=== PATIENT | female | born 1985 | race Caucasian/White ===

== ENCOUNTER 2018-11-06 17:44 | Emergency (ER) | payer OTHER ==
[~2018-11-06] VITALS: Ht 157.5 cm; Wt 58.1 kg
[2018-11-06] MEDS ORDERED: Multivitamin1 EAC1 PO (19:48)
[2018-11-06] MEDS ORDERED: CITA20 PO (19:48)
== END 2018-11-06 19:50 | disposition home or self-care (01) ==
LOC: ER 17:44
DX: S80.02XA Contusion of left knee, initial encounter (principal); S00.81XA Abrasion of other part of head, initial encounter; S50.312A Abrasion of left elbow, initial encounter; F10.129 Alcohol abuse with intoxication, unspecified; W19.XXXA Unspecified fall, initial encounter; Z88.2 Allergy status to sulfonamides; Z79.899 Other long term (current) drug therapy
CPT/HCPCS: 70450; 73562-LT; 99284-25